=== PATIENT | female | born 1960 ===

== ENCOUNTER 2017-05-03 13:46 | Emergency (ER) | payer MEDICARE, MEDICAID ==
[2017-05-03 13:46] VITALS: BMI 28.1
[2017-05-03 14:01] VITALS: BP 126/92; PULSE 62; RESP 18; TEMP 97; O2SAT 98
--- NOTE | 2017-05-03 14:49 | ED PDOC ---
Syncope/Near Syncope/Dizziness Time Seen by Provider: 05/03/17 14:03 Chief Complaint (Nursing): Dizziness/Lightheaded Chief Complaint (Provider): Dizziness/Lightheaded History Per: Patient History/Exam Limitations: no limitations Onset/Duration Of Symptoms: Days (x2) Current Symptoms Are (Timing): Still Present Additional Complaint(s): 57 year old female who presents to the emergency department with a complaint of non-vertiginous dizziness associated with bilateral ear pain/pressure, vomiting , headache, runny nose, sore throat, productive cough with white sputum, generalized bodyaches, malaise, shortness of breath and subjective fever ongoing for 2 days. Denied any bloody cough, diarrhea, abdominal pain, sick contacts or recent travel. Patient reported taking Advil earlier for pain relief. PMD: Chip Gutierres MD Past Medical History Reviewed: Historical Data, Nursing Documentation, Vital Signs Vital Signs: Last Vital Signs Temp 97 F L 05/03/17 13:56 Pulse 62 05/03/17 13:56 Resp 18 05/03/17 13:56 BP 126/92 H 05/03/17 13:56 Pulse Ox 98 05/03/17 13:56 - Medical History PMH: Arthritis (RT SHOULDER), Colonic Polyps, Gastritis, HTN, Hypercholesterolemia, Hyperthyroidism Denies: Chronic Kidney Disease - Surgical History Surgical History: Endoscopy Denies: No Surg Hx Other surgeries: varicose veins - Family History Family History: States: Hypertension Denies: Unknown Family Hx - Social History Current smoker - smoking cessation education provided: No Alcohol: None Drugs: Denies - Immunization History Hx Tetanus Toxoid Vaccination: No Hx Influenza Vaccination: No Hx Pneumococcal Vaccination: No - Home Medications Home Medications: Ambulatory Orders Medication Instructions Recorded Aspirin [Ecotrin] 81 mg PO DAILY 12/18/16 Desloratadine [Clarinex] 5 mg PO DAILY 12/18/16 Ergocalciferol (Vitamin D2) 50,000 unit PO QWK 12/18/16 [Vitamin D2] Levothyroxine [Synthroid] 50 mcg PO DAILY 12/18/16 Montelukast [Singulair] 10 mg PO HS 12/18/16 Pantoprazole Sodium [Protonix] 40 mg PO DAILY 12/18/16 Simvastatin 40 mg PO HS 12/18/16 Acetaminophen [Tylenol Extra 1,000 mg PO Q6 PRN #100 tablet 05/03/17 Strength] Albuterol HFA [Ventolin HFA 90 2 puff IH Q4H PRN #1 inh 05/03/17 mcg/actuation (8 g)] Oseltamivir [Tamiflu] 75 mg PO BID #10 cap 05/03/17 - Allergies Allergies/Adverse Reactions: Allergies Allergy/AdvReac Type Severity Reaction Status Date / Time Penicillins Allergy Intermediate RASH Verified 12/18/16 13:13 Review of Systems ROS Statement: Except As Marked, All Systems Reviewed And Found Negative Constitutional: Positive for: Fever (subjective), Malaise, Other (generalized bodyaches) ENT: Positive for: Ear Pain (associated with pressure bilaterally), Nose Discharge, Throat Pain Respiratory: Positive for: Cough, Shortness of Breath, Sputum (white). Negative for: Hemoptysis Gastrointestinal: Positive for: Vomiting. Negative for: Abdominal Pain, Diarrhea Neurological: Positive for: Headache, Dizziness (non-vertiginous) Physical Exam - Reviewed Nursing Documentation Reviewed: Yes Vital Signs Reviewed: Yes - Physical Exam Appears: Positive for: Non-toxic, In Acute Distress Head Exam: Positive for: ATRAUMATIC, NORMOCEPHALIC Skin: Positive for: Warm, Dry Eye Exam: Positive for: EOMI, PERRL ENT: Negative for: Pharyngeal Erythema, Tonsillar Exudate Neck: Positive for: Painless ROM, Supple Cardiovascular/Chest: Positive for: Regular Rate, Rhythm, Chest Non Tender. Negative for: Murmur Respiratory: Positive for: Normal Breath Sounds. Negative for: Wheezing, Respiratory Distress Gastrointestinal/Abdominal: Positive for: Bowel Sounds, Soft. Negative for: Tenderness Back: Positive for: Normal Inspection. Negative for: Decreased ROM Extremity: Positive for: Normal ROM. Negative for: Deformity Lymphatic: Negative for: Adenopathy Neurologic/Psych: Positive for: Alert. Negative for: Motor/Sensory Deficits - Laboratory Results Result Diagrams: 05/03/17 15:02 05/03/17 15:02 - ECG O2 Sat by Pulse Oximetry: 98 (RA) Pulse Ox Interpretation: Normal Medical Decision Making Medical Decision Making: Initial Impression: Viral syndrome Differential Diagnosis: Pneumonia; URI; influenza; bronchitis Initial Plan: * CMP * Magnesium * Phosphorous * CBC * CXR * Tamiflu cap 75mg PO * Toradol 15mg IVP * Tylenol 325mg PO * Blood culture * Influenza A B ____ Time: 1441 --CXR FINDINGS: LUNGS: No active pulmonary disease. PLEURA: No significant pleural effusion identified. No pneumothorax apparent. CARDIOVASCULAR: Normal. OSSEOUS STRUCTURES: No significant abnormalities. VISUALIZED UPPER ABDOMEN: Normal. OTHER FINDINGS: None. IMPRESSION: No active disease. No significant interval change compared to the prior examination(s). Labs unremarkable. On reevaluation pt feels better. DW pt findings and plan of care Scribe Attestation: Documented by Carlie Stoddard, acting as a scribe for Akosua Overton MD. Provider Scribe Attestation: All medical record entries made by the Scribe were at my direction and personally dictated by me. I have reviewed the chart and agree that the record accurately reflects my personal performance of the history, physical exam, medical decision making, and the department course for this patient. I have also personally directed, reviewed, and agree with the discharge instructions and disposition. Disposition - Clinical Impression Clinical Impression: Bronchitis, Influenza Counseled Patient/Family Regarding: Studies Performed, Diagnosis, Need For Followup, Rx Given - Disposition Referrals: Chip Gutierres MD [Family Provider] - 05/04/17 Disposition: Routine/Home Disposition Time: 16:00 Condition: GOOD Prescriptions: Acetaminophen [Tylenol Extra Strength] 1,000 mg PO Q6 PRN #100 tablet PRN Reason: FEVER OR PAIN Albuterol HFA [Ventolin HFA 90 mcg/actuation (8 g)] 2 puff IH Q4H PRN #1 inh PRN Reason: ASTHMA Oseltamivir [Tamiflu] 75 mg PO BID #10 cap Instructions: Influenza (ED), Acute Bronchitis (ED) Forms: [facility] (Spanish) Print Language: GERMAN
[2017-05-03 15:14] LABS: BASO % 0.2 % (0.0-2.0); EOS # 0.1 K/uL (0.0-0.7); EOS % 0.8 % (0.0-4.0); HEMOGLOBIN 13.3 g/dL (12.0-16.0); LYMPH # 1.2 K/uL (1.0-4.3); MEAN CELL VOLUME 92.5 fl (81.0-99.0); MEAN CORPUSCULAR HEMOGLOBIN 31.6 pg (27.0-31.0); MEAN CORPUSCULAR HGB CONC 34.1 g/dL (33.0-37.0); MEAN PLATELET VOLUME 9.9 fl (7.2-11.7); MONO # 0.5 K/uL (0.0-0.8); MONO % 6.7 % (0.0-10.0); NEUT # 6.2 K/uL (1.8-7.0); NEUT % 77.3 % (50.0-75.0); NRBC % 0.1 % (0.0-0.0); RBC 4.21 Mil/uL (3.80-5.20); RED CELL DISTRIBUTION WIDTH 13.2 % (11.5-14.5)
[2017-05-03 15:43] LABS: ALB/GLOB RATIO 1.1 (1.0-2.1); ALBUMIN 4.3 g/dL (3.5-5.0); ALT/SGPT 30 U/L (9-52); AST/SGOT 27 U/L (14-36); BLOOD UREA NITROGEN 16 mg/dl (7-17); CALCIUM 9.5 mg/dL (8.4-10.2); GFR AFRICAN-AMERICAN > 60; GFR NON-AFRICAN AMERICAN > 60
--- NOTE | 2017-05-03 16:03 | RAD ---
HISTORY: Cough, fever. COMPARISON: 05/02/2015. TECHNIQUE: Chest PA and lateral FINDINGS: LUNGS: No active pulmonary disease. PLEURA: No significant pleural effusion identified. No pneumothorax apparent. CARDIOVASCULAR: Normal. OSSEOUS STRUCTURES: No significant abnormalities. VISUALIZED UPPER ABDOMEN: Normal. OTHER FINDINGS: None. IMPRESSION: No active disease. No significant interval change compared to the prior examination(s).
== END 2017-05-03 19:47 | disposition home or self-care (01) ==
LOC: H.ER 13:46
DX: J11.1 Influenza due to unidentified influenza virus with other respiratory manifestations (principal); J40 Bronchitis, not specified as acute or chronic; E05.90 Thyrotoxicosis, unspecified without thyrotoxic crisis or storm; E78.00 Pure hypercholesterolemia, unspecified; I10 Essential (primary) hypertension; Z79.82 Long term (current) use of aspirin; Z88.0 Allergy status to penicillin
CPT/HCPCS: 71046; 80053; 83735; 84100; 85025; 87040; 87804; 96374; 99282; J1885

== ENCOUNTER 2017-11-26 00:17 | Emergency (ER) | payer MEDICARE, MEDICAID ==
[2017-11-26 00:18] VITALS: BMI 28.1
[2017-11-26 00:39] VITALS: RESP 16; O2SAT 96
[2017-11-26] MEDS ORDERED: Sodium Chloride 0.9% 1,000 ML IV STA (01:09)
--- NOTE | 2017-11-26 01:20 | ED PDOC ---
History of Present Illness History of Present Illness: 57 year old female with a history of hypertension, hypercholesterolemia , hypothyroidism, arthritis, colonic polyps and gastritis presents to the ED with flu like symptoms onset one day. Patient reports generalized body aches, headache, ear ache, sore throat, fever, nausea but denies vomiting, photophobia , neck stiffness or any other medical complaints. PMD: Dr. Gutierres HPI: Influenza Time Seen by Provider: 11/26/17 00:56 Chief Complaint: Flu-like Symptoms Chief Complaint (Provider): Flu-like Symptoms History Per: Patient Exam Limitations: no limitations Onset/Duration Of Symptoms: Days (x1) Symptoms include: fever, headache, bodyaches, sore throat. denies: vomiting Past Medical History Reviewed: Historical Data, Nursing Documentation, Vital Signs Vital Signs: Last Vital Signs Temp 100.0 F H 11/26/17 00:32 Pulse 79 11/26/17 00:32 Resp 16 11/26/17 00:32 BP 132/66 11/26/17 00:32 Pulse Ox 96 11/26/17 00:32 - Medical History PMH: Arthritis (RT SHOULDER), Colonic Polyps, Gastritis, HTN, Hypercholesterolemia, Hypothyroidism Denies: Chronic Kidney Disease - Surgical History Surgical History: Endoscopy - Family History Family History: States: Hypertension Denies: Unknown Family Hx - Social History Current smoker - smoking cessation education provided: No Ex-Smoker (has not smoked in the last 12 months): No Alcohol: None Drugs: Denies - Immunization History Hx Tetanus Toxoid Vaccination: No Hx Influenza Vaccination: No Hx Pneumococcal Vaccination: No - Home Medications Home Medications: Ambulatory Orders Medication Instructions Recorded Aspirin [Ecotrin] 81 mg PO DAILY 12/18/16 Desloratadine [Clarinex] 5 mg PO DAILY 12/18/16 Ergocalciferol (Vitamin D2) 50,000 unit PO QWK 12/18/16 [Vitamin D2] Levothyroxine [Synthroid] 50 mcg PO DAILY 12/18/16 Montelukast [Singulair] 10 mg PO HS 12/18/16 Pantoprazole Sodium [Protonix] 40 mg PO DAILY 12/18/16 Simvastatin 40 mg PO HS 12/18/16 Acetaminophen [Tylenol Extra 1,000 mg PO Q6 PRN #100 tablet 05/03/17 Strength] Albuterol HFA [Ventolin HFA 90 2 puff IH Q4H PRN #1 inh 05/03/17 mcg/actuation (8 g)] Oseltamivir [Tamiflu] 75 mg PO BID #10 cap 05/03/17 - Allergies Allergies/Adverse Reactions: Allergies Allergy/AdvReac Type Severity Reaction Status Date / Time Penicillins Allergy Intermediate RASH Verified 12/18/16 13:13 Review of Systems ROS Statement: Except As Marked, All Systems Reviewed And Found Negative Constitutional: Positive for: Fever ENT: Positive for: Ear Pain, Throat Pain Gastrointestinal: Positive for: Nausea. Negative for: Vomiting Musculoskeletal: Positive for: Other (generalized body ache) Neurological: Positive for: Headache Physical Exam - Reviewed Nursing Documentation Reviewed: Yes Vital Signs Reviewed: Yes - Physical Exam Appears: Positive for: Uncomfortable Head Exam: Positive for: ATRAUMATIC, NORMOCEPHALIC Skin: Positive for: Normal Color, Warm, Dry Eye Exam: Positive for: Normal appearance, EOMI, PERRL ENT: Positive for: Pharyngeal Erythema, Other (dry mucous membranes). Negative for: Tonsillar Exudate Neck: Positive for: Normal, Supple Cardiovascular/Chest: Positive for: Regular Rate, Rhythm. Negative for: Murmur Respiratory: Positive for: Normal Breath Sounds. Negative for: Respiratory Distress Gastrointestinal/Abdominal: Positive for: Normal Exam, Soft. Negative for: Tenderness Extremity: Positive for: Normal ROM (upper and lower) Neurologic/Psych: Positive for: Alert, Oriented (x3), Other (no photophobia) Medical Decision Making Medical Decision Making: Time: 1:08 Initial Impression: 57 year old female with flu like symptoms Initial Plan: --labs --iv fluids --toradol 15 mg IVP --reglan 10 mg IVBP Time: 4:42 --Labs reviews, showed no clinically significant abnormalities. Patient reports improvement symptoms. Diagnosis viral pharyngitis. Scribe Attestation: Documented by Crystal Lewis, acting as a scribe for Simón Driscoll MD Provider Scribe Attestation: All medical record entries made by the Scribe were at my direction and personally dictated by me. I have reviewed the chart and agree that the record accurately reflects my personal performance of the history, physical exam, medical decision making, and the department course for this patient. I have also personally directed, reviewed, and agree with the discharge instructions and disposition. - Laboratory Results Result Diagrams: 11/26/17 01:41 11/26/17 01:41 - ECG O2 Sat by Pulse Oximetry: 96 (RA) Pulse Ox Interpretation: Normal Disposition - Clinical Impression Clinical Impression: Viral syndrome - Disposition Disposition Time: 04:42 Condition: STABLE Instructions: Viral Pharyngitis Forms: [facility] (Belarusian) Print Language: LIBYAN
[2017-11-26 02:18] LABS: BASO % 0.1 % (0.0-2.0); EOS % 0.3 % (0.0-4.0); HEMOGLOBIN 12.4 g/dL (12.0-16.0); LYMPH # 1.3 K/uL (1.0-4.3); LYMPH % 14.9 % (20.0-40.0); MEAN CELL VOLUME 93.3 fl (81.0-99.0); MEAN CORPUSCULAR HEMOGLOBIN 31.5 pg (27.0-31.0); MEAN CORPUSCULAR HGB CONC 33.8 g/dL (33.0-37.0); MEAN PLATELET VOLUME 10.3 fl (7.2-11.7); MONO # 0.6 K/uL (0.0-0.8); NEUT # 6.8 K/uL (1.8-7.0); NEUT % 77.7 % (50.0-75.0); NRBC % 0.1 % (0.0-0.0); RBC 3.92 Mil/uL (3.80-5.20); RED CELL DISTRIBUTION WIDTH 13.2 % (11.5-14.5); WHITE BLOOD COUNT 8.7 K/uL (4.8-10.8)
[2017-11-26 02:21] LABS: ALB/GLOB RATIO 1.3 (1.0-2.1); ALBUMIN 4.1 g/dL (3.5-5.0); ALT/SGPT 15 U/L (9-52); AST/SGOT 27 U/L (14-36); BLOOD UREA NITROGEN 15 mg/dl (7-17); CALCIUM 8.9 mg/dL (8.4-10.2); GFR AFRICAN-AMERICAN > 60; GFR NON-AFRICAN AMERICAN > 60
[2017-11-26 02:26] LABS: SQUAMOUS EPITHIAL 3 /hpf (0-5); URINE BILIRUBIN NEGATIVE (NEGATIVE); URINE BLOOD NEGATIVE (NEGATIVE); URINE CLARITY SLIGHTY-CLOUDY (Clear); URINE COLOR YELLOW (YELLOW); URINE GLUCOSE (UA) NEG (Normal); URINE LEUKOCYTE ESTERASE TRACE Leu/uL (Negative); URINE PROTEIN NEGATIVE (NEGATIVE)
[2017-11-26 06:07] VITALS: BP 129/64; PULSE 72; TEMP 97
== END 2017-11-26 04:30 | disposition home or self-care (01) ==
LOC: H.ER 00:17
DX: J02.9 Acute pharyngitis, unspecified (principal); B34.9 Viral infection, unspecified; E03.9 Hypothyroidism, unspecified; E78.00 Pure hypercholesterolemia, unspecified; I10 Essential (primary) hypertension; Z88.0 Allergy status to penicillin
CPT/HCPCS: 80053; 81003; 83605; 85025; 86308; 87040; 87070; 87430; 87804; 96374; 99282; J1885; J7030